=== PATIENT | female | born 1945 | race Caucasian/White ===

== ENCOUNTER 2022-02-16 21:43 | Emergency (ER) | payer SELFPAY ==
[~2022-02-16] VITALS: Ht 162.6 cm; Wt 79.5 kg
[2022-02-16 21:44] VITALS: TEMP 98.3
[2022-02-16] MEDS ORDERED: MOTRIN 800800 MG/TAB PO (23:01)
[2022-02-16] MEDS ORDERED: NORCO 325 MG-51 TAB PO (23:01)
[2022-02-16 23:16] VITALS: BP 144/78; PULSE 76
[2022-02-17] MEDS ORDERED: MOTRIN 800800 MG/TAB PO (10:42)
[2022-02-17] MEDS ORDERED: NORCO 325 MG-51 TAB PO (10:42)
== END 2022-02-16 23:16 | disposition home or self-care (01) ==
LOC: COL.ER 21:43 → EDBD 21:44 → COL.ER 21:44
DX: S02.2XXA Fracture of nasal bones, initial encounter for closed fracture (principal); S09.90XA Unspecified injury of head, initial encounter; W10.1XXA Fall (on)(from) sidewalk curb, initial encounter